=== PATIENT | female | born 1965 | race Caucasian/White ===

== ENCOUNTER → 2016-06-04 | Outpatient (CLI) | payer OTHER | LOC: LAB.O 12:39 | PROVIDERS: ATTEND Nurse Practitioner Family | DX: E34.9 Endocrine disorder, unspecified (principal) ==

== ENCOUNTER → 2016-06-18 | Outpatient (CLI) | payer OTHER | END | disposition home or self-care (01) | LOC: YCFC.O 12:18 | PROVIDERS: ATTEND Nurse Practitioner Family | DX: N99.0 Postprocedural (acute) (chronic) kidney failure (principal) ==

== ENCOUNTER 2016-07-24 16:28 | Emergency (ER) | payer OTHER ==
[2016-07-24 16:49] VITALS: TEMP 97.5
[2016-07-24] MEDS ORDERED: IBUPROFEN 200 MG TAB PO ONE (17:23)
--- NOTE | 2016-07-24 17:31 | ED.PDOC ---
History of Present Illness - General Chief Complaint: Laceration Stated Complaint: laceration Time Seen by Provider: 07/24/16 16:33 Source: patient, RN notes reviewed, Vital Signs reviewed Exam Limitations: no limitations - History of Present Illness Initial Comments: Patient was mowing on the tractor when the roll bar behind her head caught a limb. Something struck her on the right cheek. She is unsure if she lost consciousness. She was dazed. Her did not witness the accident but says she was stumbling in the yard and was confused. + DUNN but denies any other injuries. Timing/Duration: 1/2 hour Severity: severe Improving Factors: cold therapy, rest Worsening Factors: movement, other - touching Associated Symptoms: headaches Allergies/Adverse Reactions: Allergies Morphine Allergy (Verified 07/24/16 16:50) Home Medications: Ambulatory Orders Mirabegron [Myrbetriq] 50 mg PO DAILY 10/26/13 Zolpidem Tartrate [Ambien] 10 mg PO DAILY 10/26/13 Sertraline HCl [Zoloft] 50 mg PO DAILY 02/09/15 Sertraline HCl [Zoloft] 25 mg PO DAILY 02/15/15 Ondansetron [Zofran Odt] 4 mg PO Q4HR PRN #20 tab 07/24/16 Tramadol HCl 50 mg PO Q6HRS PRN #15 tab 07/24/16 Review of Systems - Review of Systems Constitutional: States: no symptoms reported EENTM: States: mouth pain, mouth swelling - Right upper gums, no dental tenderness. Denies: eye pain, blurred vision, tearing, double vision Respiratory: States: no symptoms reported Cardiology: States: no symptoms reported Gastrointestinal/Abdominal: States: no symptoms reported Genitourinary: States: no symptoms reported Musculoskeletal: States: no symptoms reported. Denies: back pain, neck pain Skin: States: see HPI Neurological: States: headache. Denies: numbness, paresthesia, seizure, tingling, tremors, weakness Endocrine: States: no symptoms reported Hematologic/Lymphatic: States: no symptoms reported Past Medical History (General) - Patient Medical History Hx Seizures: No Hx of COPD: No Hx Congestive Heart Failure: No Hx Diabetes: No Hx Renal Disease: Yes - hx uti Surgical History: cholecystectomy, Hysterectomy, other - Vaccination History Hx Tetanus, Diphtheria Vaccination: No Hx Influenza Vaccination: Yes Hx Pneumococcal Vaccination: No - Social History Hx Tobacco Use: No Hx Alcohol Use: Yes Hx Substance Use: No Hx Substance Use Treatment: No Hx Depression: No - Activities of Daily Living Hospice Agency (if applicable):: None - Female History Patient is a Female of Child Bearing Age (10 -59 yrs old): No Patient : No Family Medical History - Family History Mother Family History: Unknown Living Status: Still Living Physical Exam - Physical Exam General Appearance: Alert, Comfortable, No apparent distress, Well Developed, Well Groomed, Well Hydrated, Well Nourished Eye Exam: bilateral normal Ears, Nose, Throat: hearing grossly normal, normal pharynx Neck: non-tender, full range of motion, supple, normal inspection Respiratory: chest non-tender, lungs clear, normal breath sounds, no respiratory distress, no accessory muscle use Cardiovascular/Chest: regular rate, rhythm, no edema, no gallop, no JVD, no murmur Extremity: normal range of motion, non-tender, normal inspection 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 More just an abrasion. Will treat conservatively with antibiotic ointment and dressing. - EKG/XRAY/CT CT: Orbits: no fracture, hematoma & soft tissue swelling on R CT Ordered: Yes - Head: no acute intracranial abnormality Departure - Departure Clinical Impression: Contusion of face Qualifiers: Encounter type: initial encounter Qualifier Code: (S00.83XA) Contusion of other part of head, initial encounter Abrasion of face Qualifiers: Encounter type: initial encounter Qualifier Code: (S00.81XA) Abrasion of other part of head, initial encounter Disposition: Discharge to Home or Self Care Condition: Good Departure Forms: ED Discharge - Pt. Copy, Patient Portal Self Enrollment Instructions: Eye Contusion, DI for Abrasion Diet: resume usual diet Activity: increase activity as tolerated Referrals: Quita Hsu NP [Primary Care Provider] - 1-5 Days Prescriptions: Ondansetron [Zofran Odt] 4 mg PO Q4HR PRN #20 tab PRN Reason: Nausea/Vomiting Tramadol HCl 50 mg PO Q6HRS PRN #15 tab PRN Reason: Pain -- Moderate To Severe Home Medications: Ambulatory Orders Mirabegron [Myrbetriq] 50 mg PO DAILY 10/26/13 Zolpidem Tartrate [Ambien] 10 mg PO DAILY 10/26/13 Sertraline HCl [Zoloft] 50 mg PO DAILY 02/09/15 Sertraline HCl [Zoloft] 25 mg PO DAILY 02/15/15 Ondansetron [Zofran Odt] 4 mg PO Q4HR PRN #20 tab 07/24/16 Tramadol HCl 50 mg PO Q6HRS PRN #15 tab 07/24/16
--- NOTE | 2016-07-24 17:43 | CT ---
EXAM DESCRIPTION: Head CLINICAL HISTORY: DUNN/swelling R cheek after blow COMPARISON: None Available. TECHNIQUE: Contiguous axial images of the brain were obtained without the administration of intravenous contrast. FINDINGS: There is no acute intracranial hemorrhage or mass effect. Metallic artifact degrades several images. Ventricular system is within normal limits. There is adequate henderson-white matter differentiation. There is no skull fracture. There is soft tissue swelling within the right side of the face, please correlate with the CT of the face dictation. The visualized paranasal sinuses and mastoid air cells are within normal limits. IMPRESSION: No acute intracranial abnormalities. Electronically signed by: Woodrow Montgomery MD 07/24/2016 5:43 PM CDT
--- NOTE | 2016-07-24 17:47 | CT ---
EXAM DESCRIPTION: CT Orbits CLINICAL HISTORY: DUNN/swelling R cheek after blow COMPARISON: None Available. TECHNIQUE: Contiguous axial images of the orbits were obtained without the administration of intravenous contrast. FINDINGS: There is a hematoma and subcutaneous emphysema within the right side of the face, at the maxillary level compatible with the recent injury. Retrobulbar fat is within normal limits. Optic globes are symmetric bilaterally. There is no orbital fracture. Visualized traumatic arches are within normal limits. There is no orbital emphysema. The paranasal sinuses are well aerated. There is no bony destruction. IMPRESSION: No acute fracture. Soft tissue injury at the right side of the face/periorbital level compatible with a hematoma/laceration. Electronically signed by: Woodrow Montgomery MD 07/24/2016 5:47 PM CDT
[2016-07-24] MEDS ORDERED: KETOROLAC TROMETHAMINE INJ 60 MG/2 ML VIAL IM ONE (17:53)
[2016-07-24] MEDS ORDERED: ONDANSETRON ODT 8 MG TAB SL ONE (17:53)
[2016-07-24] MEDS ORDERED: TETANUS,DIPHTHERIA,PERTUSSIS 1 EA SYG IM ONE (18:00)
[2016-07-24] MEDS ORDERED: NEOMYCIN-BACITRACIN-POLYMYXIN 0.9 GM UD TOP ONE (18:07)
[2016-07-24 18:24] VITALS: BP 123/85; O2SAT 99
== END 2016-07-24 18:25 | disposition home or self-care (01) ==
LOC: ER 16:28
DX: S00.83XA Contusion of other part of head, initial encounter (principal); S00.81XA Abrasion of other part of head, initial encounter; Z88.6 Allergy status to analgesic agent; Z79.899 Other long term (current) drug therapy; Z23 Encounter for immunization; W22.8XXA Striking against or struck by other objects, initial encounter; Y93.H2 Activity, gardening and landscaping; Y92.007 Garden or yard of unspecified non-institutional (private) residence as the place of occurrence of the external cause

== ENCOUNTER → 2016-10-12 | Outpatient (CLI) | payer OTHER | END | disposition home or self-care (01) | LOC: LAB.O 04:59 | PROVIDERS: ATTEND Nurse Practitioner Family | DX: E34.9 Endocrine disorder, unspecified (principal) ==

== ENCOUNTER → 2017-01-07 | Outpatient (CLI) | payer OTHER ==
--- NOTE | 2017-01-07 17:00 | MAM ---
EXAM DESCRIPTION: 3D Screening BILATERAL CLINICAL HISTORY: 51 yearsFemaleSCREENING. No complaints. No family history of breast cancer. Postmenopausal. Currently on HRT. Bilateral breast reduction surgery. COMPARISON: 2-D digital screening bilateral study 03/29/2013. No prior reports available. TECHNIQUE: Bilateral CC and MLO projection full-field images, 3-D tomosynthesis digital mammographic technique. Also bilateral synthesized CC/ MLO full-field images. CAD not utilized. FINDINGS: The breast parenchymal density pattern is: Almost entirely fatty. Scattered areas of fibroglandular density. Heterogeneously dense breast tissue, which may obscure small masses. Extremely dense breast tissue, which lowers the sensitivity of mammography. No skin thickening or nipple retraction bilateral axillary lymph nodes. Intramammary lymph nodes in the anterior two thirds of the right breast. Intramammary lymph nodes in the middle third of the left breast. Bilateral solitary microcalcifications, and larger coarse calcification in the anterior third of the right breast.. No focal, stellate mass or density, focal asymmetry , and no suspicious microcalcifications bilaterally. Stable mammograms compared to prior study, taking into account differences in mammographic technique IMPRESSION: BI-RADS CATEGORY: 2 - BENIGN FINDINGS. FOLLOW UP: Routine digital bilateral screening, one year interval from January 2017. Written communication explaining the findings and follow-up, will be mailed to the patient and referring health care provider. According to the [employer], yearly mammograms are recommended starting at age 40 and continuing as long as a woman is in good health. Any breast change noted on a breast self-exam should be reported promptly to the patient's healthcare provider. Breast MRI is recommended for women with an approximately 20-25% or greater lifetime risk of breast cancer, including women with a strong family history of breast or ovarian cancer and women who have been treated for Hodgkin's disease. A negative mammographic report should not delay tissue diagnosis in patients with significant clinical history or physical findings. Extremely dense breast tissue limits the sensitivity of digital mammography. Electronically signed by: Kervin Blake MD 01/07/2017 4:58 PM CDT
== END | disposition home or self-care (01) ==
LOC: MAMMO 08:26
PROVIDERS: ATTEND Nurse Practitioner Family
DX: Z12.31 Encounter for screening mammogram for malignant neoplasm of breast (principal)
CPT/HCPCS: 77063; G0202

== ENCOUNTER → 2017-03-08 | Outpatient (CLI) | payer OTHER | END | disposition home or self-care (01) | LOC: LAB.O 05:49 | PROVIDERS: ATTEND Nurse Practitioner Family | DX: E34.9 Endocrine disorder, unspecified (principal) ==

== ENCOUNTER → 2017-06-16 | Outpatient (CLI) | payer OTHER | LOC: YCFC.O 09:05 | PROVIDERS: ATTEND Nurse Practitioner Family | DX: R68.89 Other general symptoms and signs (principal); N39.0 Urinary tract infection, site not specified ==

== ENCOUNTER → 2017-08-08 | Outpatient (CLI) | payer OTHER | END | disposition home or self-care (01) | LOC: LAB.O 13:11 | PROVIDERS: ATTEND Nurse Practitioner Family | DX: E34.9 Endocrine disorder, unspecified (principal) ==

== ENCOUNTER → 2017-12-27 | Outpatient (CLI) | payer OTHER | LOC: YCFC.O 05:29 | PROVIDERS: ATTEND Family Medicine | DX: E78.5 Hyperlipidemia, unspecified (principal) ==

== ENCOUNTER → 2018-04-03 | Outpatient (CLI) | payer OTHER ==
--- NOTE | 2018-04-06 15:41 | MAM ---
EXAM DESCRIPTION: 3D Screening BILATERAL : Digital Mammography. CLINICAL HISTORY: 53 years Female SCREEN history sheet. Lifetime risk of developing breast cancer (Tyrer-Cuzick model)(%): Not calculated COMPARISON: prior. No prior reports available. TECHNIQUE: Bilateral CC and MLO projection full-field images, with [employer] Displacement digital tomosynthesis mammographic technique. Bilateral 2-D digital full-field images, MLO and CC projections, non-displaced. CAD Bilateral digital 2-D full-field MLO images. CAD not available for tomosynthesis or 2-D images. FINDINGS: The breast parenchymal density pattern is: Scattered areas of fibroglandular density. No skin thickening or nipple retraction. Bilateral solitary microcalcifications. Stable bilateral circumscribed masses thought to be intramammary lymph nodes. No new focal, stellate mass or density, focal asymmetry , and no suspicious microcalcifications bilaterally. Stable mammograms compared to prior study. Taking into account, differences in mammographic technique. IMPRESSION: Benign exam. BIRAD CATEGORY: 2 BENIGN FINDINGS. RECOMMENDATIONS: FOLLOW UP: Routine digital bilateral mammographic screening, one year interval from March 2018. Written communication explaining the IMPRESSION and follow-up, will be mailed to the patient and referring health care provider. According to the [employer], yearly mammograms are recommended starting at age 40 and continuing as long as a woman is in good health. Any breast change noted on a breast self-exam should be reported promptly to the patient's healthcare provider. Breast MRI is recommended for women with an approximately 20-25% or greater lifetime risk of breast cancer, including women with a strong family history of breast or ovarian cancer and women who have been treated for Hodgkin's disease. A negative mammographic report should not delay tissue diagnosis in patients with significant clinical history or physical findings. Extremely dense breast tissue limits the sensitivity of digital mammography. Electronically signed by: Kervin Blake MD 04/06/2018 3:40 PM [employer]OUNT[employer]END[employer]
== END ==
LOC: MAMMO 12:19
PROVIDERS: ATTEND Family Medicine
DX: Z12.31 Encounter for screening mammogram for malignant neoplasm of breast (principal); E34.9 Endocrine disorder, unspecified

== ENCOUNTER → 2019-04-16 | Outpatient (CLI) | payer OTHER | LOC: YCFC.O 11:52 | PROVIDERS: ATTEND Family Medicine | DX: E03.9 Hypothyroidism, unspecified (principal) ==

== ENCOUNTER → 2019-05-13 | Outpatient (CLI) | payer BC, OTHER ==
--- NOTE | 2019-05-13 11:39 | RAD ---
EXAM DESCRIPTION: Foot,Left 3 Views CLINICAL HISTORY: 54 years Female, PAIN IN LEFT FOOT COMPARISON: Left foot radiographs 05/21/2011. TECHNIQUE: 3 view radiographs of the left foot. IMPRESSION: Bones appear mildly demineralized. If not performed, consider DEXA scan to assess for fracture risk. No acute displaced fracture. No dislocation. Normal anatomic alignment of the tarsal bones. Intact Lisfranc joint. Moderate arthrosis about the midfoot. Moderate hallux valgus deformity. Mild generalized soft tissue edema about the forefoot. Electronically signed by: Eduardo Browne MD 05/13/2019 11:37 AM [facility]
== END ==
LOC: RAD 07:55
PROVIDERS: ATTEND Orthopaedic Surgery
DX: M19.072 Primary osteoarthritis, left ankle and foot (principal); M20.12 Hallux valgus (acquired), left foot; R60.9 Edema, unspecified

== ENCOUNTER → 2019-11-02 | Outpatient (CLI) | payer OTHER | LOC: YCFC.O 13:16 | PROVIDERS: ATTEND Family Medicine | DX: N39.0 Urinary tract infection, site not specified (principal) ==

== ENCOUNTER → 2019-12-03 | Outpatient (CLI) | payer BC ==
--- NOTE | 2019-12-07 15:28 | MAM ---
EXAM DESCRIPTION: 3D Screening BILATERAL : Digital Mammography. CLINICAL HISTORY: 54 years Female ANNUAL SCREENING . No complaints. Menarche age 14. Childbirth age 17. Premenopausal. No HRT. Lifetime risk of developing breast cancer (Tyrer-Cuzick model)(%): 11.6. COMPARISON: Bilateral screening digital breast tomosynthesis March 2018 and January 2017. TECHNIQUE: Bilateral CC and MLO projection full-field images, digital tomosynthesis mammographic technique. Bilateral digital 2-D full-field MLO images. CAD available for 2-D images. FINDINGS: The breast parenchymal density pattern is: Scattered areas of fibroglandular density. No skin thickening or nipple retraction. Solitary microcalcifications. Right axillary lymph node. Nodular densities bilaterally larger on the right. Enlarging nodule anterior to middle third right breast with mostly circumscribed margins and no microcalcifications similar to surrounding fibroglandular densities 8:00-8:30 clock position, lower outer quadrant, 4 cm from the nipple. Approximately 9 mm greatest diameter No new focal, stellate mass or density, focal asymmetry , and no suspicious microcalcifications left breast. IMPRESSION: BI-RADS CATEGORY: 0 - INCOMPLETE- Need additional imaging evaluation. RECOMMENDATIONS: FOLLOW-UP: Recall for additional imagin-D and tomosynthesis images right breast LM projection. Directed right breast ultrasound region of interest.. Written communication concerning the IMPRESSION and Follow-up, will be mailed to the patient and referring health care provider. Electronically signed by: Kervin Blake MD 12/07/2019 3:26 PM CDT
== END ==
LOC: MAMMO 08:44
PROVIDERS: ATTEND Family Medicine
DX: Z12.31 Encounter for screening mammogram for malignant neoplasm of breast (principal)

== ENCOUNTER → 2020-05-01 | Outpatient (CLI) | payer BC ==
--- NOTE | 2020-05-01 16:43 | RAD ---
EXAM DESCRIPTION: KUB CLINICAL HISTORY: HEMATURIA COMPARISON: None Available. TECHNIQUE: X-ray abdomen one view KUB FINDINGS: There is an unremarkable bowel gas pattern. There is no mass or calculus observed. IMPRESSION: Normal. Electronically signed by: Keaton Brand MD 05/01/2020 4:42 PM [employer]IE[employer]FORMATION SECURITY OFFICER
--- NOTE | 2020-05-01 16:44 | RAD ---
EXAM DESCRIPTION: Chest,2 Views CLINICAL HISTORY: DYSPNEA COMPARISON: None TECHNIQUE: X-ray chest 2 views PA/lateral FINDINGS: There is no cardiac or pulmonary abnormality. The lungs are clear. There is no effusion. IMPRESSION: 1. Normal two-view chest. Electronically signed by: Keaton Brand MD 05/01/2020 4:42 PM [facility]
== END ==
LOC: YCFC.O 10:42
PROVIDERS: ATTEND Nurse Practitioner Family
DX: R31.9 Hematuria, unspecified (principal); R06.00 Dyspnea, unspecified; E03.9 Hypothyroidism, unspecified; Z20.828 Contact with and (suspected) exposure to other viral communicable diseases

== ENCOUNTER → 2020-05-03 | Outpatient (CLI) | payer BC ==
--- NOTE | 2020-05-03 11:06 | CT ---
EXAM DESCRIPTION: CT ABDOMEN AND PELVIS WITHOUT AND WITH CONTRAST CLINICAL HISTORY: GROSS HEMATURIA COMPARISON: X-ray KUB May 01, 2020, CT abdomen and pelvis March 04, 2016 TECHNIQUE: CT of the abdomen and pelvis are performed prior to and during IV bolus administration of 100 mL of Isovue 300. No oral contrast. FINDINGS: CT abdomen The lung bases are clear of infiltrate. Liver is normal in size and parenchymal appearance. Gallbladder is surgically absent. Spleen, pancreas, and kidneys are unremarkable. No stones in the kidneys are seen on the precontrast images. There is no lymphadenopathy, inflammation, or free fluid observed. Orthopedic hardware in the lower lumbar spine causing metal artifact. Postcontrast images show normal enhancement of liver, spleen and pancreas. Small right renal cyst similar to previous study measuring 8 mm with density of 40 Hounsfield units precontrast and 37 Hounsfield units postcontrast. On the previous study, this lesion was seen on the postcontrast images with a density of 60 Hounsfield units and a size measured as 8 mm. With no change, a small hemorrhagic cyst is thought most likely. Tiny cyst in the lower left kidney is unchanged from previous. No solid-appearing or enlarging renal mass to suggest renal neoplasm. Moderate amount of fecal material in the colon may indicate constipation. Clinical correlation recommended. CT pelvis No inflammation is seen around the cecum or terminal ileum or sigmoid colon. Appendix is normal in appearance. No stones are seen in the distal ureters or bladder on the precontrast CT images through the pelvis. Postcontrast images show normal contrast accumulation in the distal ureters with positive contrast in the dependent portion of the bladder. No bladder wall mass or bladder wall thickening. No filling defects in the distal ureters. Normal pelvic small bowel loops. No fracture or lytic lesion of the osseous structures. Postcontrast images show normal enhancement of the pelvic vessels. Uterus and ovaries are not seen, evidently surgically absent. Coronal and sagittal reformatted images confirm the findings. Mild leftward scoliotic curvature of the lumbar spine. IMPRESSION: Stable bilateral renal cysts of small size. Negative for renal or ureteral stones. Normal CT appearance of the urinary bladder. This exam was performed according to our departmental dose-optimization program, which includes automated exposure control, adjustment of the mA and/or kV according to patient size and/or use of iterative reconstruction technique. Electronically signed by: Tanner Yeboah MD 05/03/2020 11:04 AM [facility]
== END ==
LOC: CT 09:58
PROVIDERS: ATTEND Family Medicine
DX: R31.0 Gross hematuria (principal); N28.1 Cyst of kidney, acquired